=== PATIENT | female | born 1975 | race Caucasian/White ===

== ENCOUNTER 2023-11-05 17:59 | Emergency (ER) | payer SELFPAY ==
[2023-11-05 18:51] LABS: APPEARANCE,URINE SLIGHTLY CLOUDY (CLEAR); BILIRUBIN,URINE NEGATIVE (NEGATIVE); GLUCOSE,URINE NEGATIVE (NEGATIVE); KETONES,URINE NEGATIVE (NEGATIVE); LEUKOCYTE ESTERASE,URINE NEGATIVE (NEGATIVE); NITRITE,URINE NEGATIVE (NEGATIVE); OCCULT BLOOD,URINE SMALL (NEGATIVE); PH,URINE 8.5 (5.0-8.0); PROTEIN,URINE TRACE mg/dL (NEGATIVE); UROBILINOGEN,URINE 0.2 E.U./dL (0.2-1.0)
[2023-11-05 18:52] LABS: BACTERIA,URINE MANY /HPF; COLOR,URINE YELLOW; RBC,URINE 0-5 /HPF; WBC,URINE NOT SEEN /HPF
[2023-11-05 18:55] LABS: HEMATOCRIT 41.7 % (37.0-47.0); HEMOGLOBIN 13.9 g/dL (11.5-16.5); MEAN CORPUSCULAR HEMOGLOBIN 31.3 pg (27.0-32.0); MEAN CORPUSCULAR HGB CONC 33.3 g/dL (31.0-35.0); RED BLOOD CELL COUNT 4.44 M/uL (3.80-5.80); RED CELL DISTRIBUTION WIDTH 12.6 % (11.0-16.0)
[2023-11-05 19:06] LABS: ALBUMIN 3.5 g/dL (3.4-5.0); ANION GAP 10.4 mmol/L (5.0-15.0); BILIRUBIN TOTAL 0.6 mg/dL (0.0-1.0); BUN/CREATININE RATIO 16.9 (6-25); CALCIUM 8.5 mg/dL (8.5-10.1); CARBON DIOXIDE,CO2 28.5 mmol/L (21.0-32.0); CREATININE 0.77 mg/dL (0.55-1.02); EST CRCL DRUG DOSING (CG) 64.88 mL/min; POTASSIUM,K 3.9 mmol/L (3.5-5.1); PROTEIN TOTAL,TP 7.1 g/dL (6.4-8.2)
[2023-11-05] MEDS ORDERED: Sodium Chloride 0.9% 10 ML Syringe FLUSH PRN (19:27)
[2023-11-05] MEDS: Ondansetron 4 MG/2 ML SDV IVPUSH ONE (19:33)
[2023-11-05] MEDS: Morphine 4 MG/ML VIAL IVPUSH ONE ×2 (19:33→19:36)
[2023-11-05] MEDS: Sodium Chloride 0.9% 50 ML SDV FLUSH ONE (19:47)
[2023-11-05] MEDS: Iopamidol 612 MG/ML 100 ML Bottle IV SCH (19:47)
[2023-11-05] MEDS: Morphine 4 MG/ML VIAL ONE (19:49)
[2023-11-05] MEDS: Ondansetron 4 MG/2 ML SDV ONE (19:49)
[2023-11-05] MEDS: metroNIDAZOLE/Normal Saline 500 MG in Premix Bag 1 BAG IV ONE (20:27)
[2023-11-05] MEDS: Sodium Chloride 0.9% 1,000 ML IV SCH (20:36)
[2023-11-05] MEDS: Ciprofloxacin in D5W 400 MG in Premix Bag 1 BAG IV ONE (21:25)
== END 2023-11-05 21:20 ==
LOC: LB.ED 17:59
DX: K37 Unspecified appendicitis (principal); F17.210 Nicotine dependence, cigarettes, uncomplicated; Z86.19 Personal history of other infectious and parasitic diseases
CPT/HCPCS: 36415; 74177; 80053; 81001; 85027; 87086; 96365; 96375; 99285; J1836; J2270; J2405; J3490; J7030; Q9967